=== PATIENT | male | born 1995 | race African-American/Black ===

== ENCOUNTER 2017-11-12 17:36 | Emergency (ER) | payer OTHER, SELFPAY ==
[2017-11-12] MEDS: NORCO, ANEXSIA 5/325MG TABLET (HYDROcodone/ACETAMINOPHEN) PO ×3 (20:52)
== END 2017-11-12 21:34 | disposition home or self-care (01) ==
LOC: M ED 17:36
DX: S62.101A Fracture of unspecified carpal bone, right wrist, initial encounter for closed fracture (principal); S60.511A Abrasion of right hand, initial encounter; W22.8XXA Striking against or struck by other objects, initial encounter; Y92.018 Other place in single-family (private) house as the place of occurrence of the external cause; Y93.89 Activity, other specified; Y99.8 Other external cause status; F17.210 Nicotine dependence, cigarettes, uncomplicated
CPT/HCPCS: 73130

== ENCOUNTER → 2021-06-04 | Outpatient (REF) ==
[~2021-06-04] MED LIST: HYDR-3715 PO
[2021-06-06 05:07] LABS: RUBEOLA IgG ANTIBODY 31.2 AU/mL (Immune >16.4)
== END ==
LOC: M LAB 16:48
PROVIDERS: ATTEND Nurse Practitioner Adult Health
DX: Z01.89 Encounter for other specified special examinations (principal)